=== PATIENT | female | born 1970 | race Caucasian/White ===

== ENCOUNTER → 2017-10-05 14:33 | Outpatient (CLI) | payer MEDICARE, MEDICAID, SELFPAY ==
[2017-10-05 14:56] LABS: Potassium 5.4 mmol/L (3.5-5.1)
== END ==
PROVIDERS: Visit Provider Nurse Practitioner
DX: E87.5 Hyperkalemia (principal)
CPT/HCPCS: 84132

== ENCOUNTER → 2017-10-28 14:54 | Outpatient (CLI) | payer MEDICARE, MEDICAID, SELFPAY ==
--- NOTE | 2017-10-28 14:56 | BI_ITS ---
MAMMOGRAPHY - BILATERAL SCREENING 3-D TANIA SYNTHESIS REASON FOR EXAM: Female, 47 years old. Bilateral Screening 3-D tomosynthesis PERTINENT HISTORY: Left needle biopsy in 1999. Patient presents asymptomatic. Positive family history involving paternal great aunt at unknown age.. TECHNIQUE: 2-D mammograms and 3-D Tania synthesis of the breast (s) were performed. CAD was performed. COMPARISON: October 15, 2008. FINDINGS: The breast composition is composed of scattered fibroglandular density. There is a 10.3 mm, predominantly well-circumscribed, hyperdense nodule within the left breast mid zone upper outer quadrant. Recommend further evaluation with sonography. There are no suspicious clustered pleomorphic calcifications. No secondary signs of malignancy. BI/SCREENING MAMM (CAD), BILAT IMPRESSION: 1 cm hyperdense left breast nodule within the upper lateral breast. Sonographic evaluation/characterization is recommended. ASSESSMENT CATEGORY: BIRADS Category 0: Incomplete. Need additional imaging evaluation as above. A letter regarding these results will be sent to the patient by the facility within 30 days. FOLLOW UP RECOMMENDATION: Ultrasound Recommended. (I) Approximately 10% of breast cancers are not detected by mammography. A normal mammogram should not delay biopsy of a clinically suspicious abnormality. Electronically Signed: Nato Trinidad MD at 15:53 EDT , Service support ,
== END ==
PROVIDERS: Visit Provider Nurse Practitioner
DX: Z12.31 Encounter for screening mammogram for malignant neoplasm of breast (principal)
CPT/HCPCS: 77063; 77067

== ENCOUNTER → 2017-11-04 13:54 | Outpatient (CLI) | payer MEDICARE, MEDICAID, SELFPAY ==
--- NOTE | 2017-11-04 14:03 | US_ITS ---
STUDY: ULTRASOUND BREAST - LEFT REASON FOR EXAM: Female, 47 years old. Abnormal screening mammogram. TECHNIQUE: Axial and longitudinal images of the LEFT breast were performed with a high resolution ultrasound transducer. COMPARISON: Comparison is made with prior mammogram dated October 28, 2017. FINDINGS: LEFT Breast: There is a 3 mm x 4 mm x 2 mm cyst at the 1:00 percent of breast at 3 cm from the nipple. This also evidence of 2 well-defined subcentimeter slightly echogenic nodules at the 1:30 position breast at 7 cm from nipple and at 2:00 position (7 cm from nipple most likely representing small lipomas. There is also evidence of a 6 mm x 6 mm x 4 mm benign-appearing lymph node at the 2:00 position breast at 7 cm from the nipple. US/Breast Limited Unilateral IMPRESSION: Findings suggestive of a 3 mm x 4 mm x 2 mm cyst at the 1:00 position breast at 3 cm from nipple. 3 small lipomas are also seen as well as a benign-appearing lymph node. ASSESSMENT CATEGORY: BIRADS Category 2: Benign. A letter regarding these results will be sent to the patient by the facility within 30 days. Electronically Signed: Eduard Lanza MD at 9:44 EDT Tel [phone], Service support ,
== END ==
PROVIDERS: Family Provider Nurse Practitioner; PCP Nurse Practitioner; Visit Provider Nurse Practitioner
DX: N63.21 Unspecified lump in the left breast, upper outer quadrant (principal)
CPT/HCPCS: 76642

== ENCOUNTER → 2018-08-30 15:54 | Outpatient (CLI) | payer MEDICARE, MEDICAID, SELFPAY ==
[2017-12-28 15:42] VITALS: BMI 27.1
[2018-08-30 16:12] LABS: Potassium 5.2 mmol/L (3.5-5.1)
== END ==
PROVIDERS: Family Provider Nurse Practitioner; PCP Nurse Practitioner; Referring Provider Nurse Practitioner; Visit Provider Nurse Practitioner
DX: E87.5 Hyperkalemia (principal)
CPT/HCPCS: 84132

== ENCOUNTER → 2018-09-01 15:41 | Outpatient (CLI) | payer MEDICARE, MEDICAID, SELFPAY ==
[2018-09-01 16:19] LABS: Free T3 3.2 pg/mL (2.18-3.98); Potassium 5.1 mmol/L (3.5-5.1); T4 Free Direct 1.33 ng/dL (0.76-1.46); Thyroid Stim Hormone (TSH) 0.76 uIU/mL (0.358-3.74); Vitamin B12 522 pg/mL (211-911)
== END ==
PROVIDERS: Family Provider Nurse Practitioner; PCP Nurse Practitioner; Referring Provider Nurse Practitioner; Visit Provider Nurse Practitioner
DX: E03.9 Hypothyroidism, unspecified (principal); M79.606 Pain in leg, unspecified; E87.5 Hyperkalemia
CPT/HCPCS: 82607; 84132; 84439; 84443; 84481

== ENCOUNTER 2021-04-20 02:49 | Emergency (ER) | payer MEDICARE, MEDICAID, SELFPAY ==
[2021-04-20 02:49] VITALS: BP 179/91; PULSE 84; RESP 16; TEMP 36.1; O2SAT 98; BMI 29.9
[2021-04-20] MEDS: Ketorolac 15 MG/ML Vial IM (03:20)
[2021-04-20 03:24] VITALS: BP 153/80
[2021-04-20 03:28] VITALS: BP 153/80
--- NOTE | 2021-04-20 04:09 | EDS_ITS ---
HPI History of Present Illness Chief Complaint: Hypertension Narrative Narrative: Patient presenting with mild headache. She states has had it most of the day. She checked her blood pressure and this was elevated at home. She states that she has not had any change in her blood pressure medications. Patient is on valsartan 40 mg p.o. daily. Patient has no visual complaints. She is not dizzy or lightheaded. She has no photophobia or phonophobia. No history of migraine. She denies chest pain, palpitations, shortness of breath. She is not had a fever. She denies any neck pain. Patient took some aspirin and some Tylenol today. When she checked her blood pressure she was concerned. Her son told her she needed to come to the ER for evaluation. [facility] Medical History Anxiety and depression Arthritis Asthma Back problem Breast lump GERD (gastroesophageal reflux disease) Hearing problem High cholesterol Psoriasis Seasonal allergies Thyroid disease Type 1 diabetes Vision problem Vitamin deficiency Home Medications fluticasone propion-salmeterol 1 puff INHALATION BID 03/14/14 [History Last Taken Unknown] aspirin-caffeine 500 mg-32.5 mg tablet 2 tab PO BID tab 12/28/17 [History Last Taken Unknown] calcium carbonate 333 mg-magnesium oxide 133 mg-zinc gluc 5 mg tablet 1 tab PO DAILY 12/28/17 [History Last Taken Unknown] cholecalciferol (vitamin D3) 25 mcg (1,000 unit) capsule 1,000 unit PO BID cap 12/28/17 [History Last Taken Unknown] cranberry concentrate-ascorbic acid 4,200 mg-20 mg capsule 1 cap PO DAILY 12/28/17 [History Last Taken Unknown] esomeprazole magnesium 20 mg capsule,delayed release 20 mg PO QDAY 12/28/17 [History Last Taken Unknown] insulin aspart U-100 100 unit/mL subcutaneous solution See Rx Instructions SC TID ml 12/28/17 [History Last Taken Unknown] levothyroxine 125 mcg tablet 125 mcg PO QDAY 12/28/17 [History Last Taken Unknown] pravastatin 20 mg tablet 20 mg PO .q o d tab 12/28/17 [History Last Taken Unknown] terbinafine HCl 250 mg tablet 250 mg PO QDAY PRN 12/28/17 [History Last Taken Unknown] turmeric root extract 500 mg capsule 500 mg PO QDAY 12/28/17 [History Last Taken Unknown] blood sugar diagnostic #300 ea 02/21/18 [Rx Last Taken Unknown] insulin syringe-needle U-100 0.3 mL 30 gauge x 1/2 #90 ea 02/21/18 [Rx Last Taken Unknown] pen needle, diabetic 32 gauge x 3/16 #130 ea 02/21/18 [Rx Last Taken Unknown] Levemir FlexTouch U-100 Insuln 18 unit SC QHS 04/20/21 [History Last Taken Unknown] albuterol sulfate 2 puff INHALATION Q4H PRN PRN 04/20/21 [History Last Taken Unknown] ascorbic acid (vitamin C) [Vitamin C] 500 mg PO DAILY 04/20/21 [History Last Taken Unknown] cyanocobalamin (vitamin B-12) [Vitamin B-12] 1,000 mcg PO DAILY 04/20/21 [History Last Taken Unknown] insulin detemir U-100 [Levemir Flexpen] 14 unit SUBCUT DAILY 04/20/21 [History Last Taken Unknown] myveos-hwrhpjcf-[id number] [Creon] 1 cap PO TID 04/20/21 [History Last Taken Unknown] valsartan 40 mg PO DAILY 04/20/21 [History Last Taken Unknown] Allergy/AdvReac Type Severity Reaction Status Date / Time amoxicillin trihydrate Allergy Severe Unknown Verified 04/20/21 02:51 [From Augmentin] azithromycin [From Zithromax] Allergy Severe Unknown Verified 04/20/21 02:51 clarithromycin [From Biaxin] Allergy Severe Unknown Verified 04/20/21 02:51 ibuprofen [From Advil] Allergy Severe Unknown Verified 04/20/21 02:51 potassium clavulanate Allergy Severe Other Verified 04/20/21 02:51 [From Augmentin] sulfadiazine [Sulfadiazine] Allergy Severe Unknown Verified 04/20/21 02:51 levothyroxine Allergy Unknown Unknown Verified 04/20/21 02:51 vancomycin Allergy Unknown Unknown Verified 04/20/21 02:51 Family History Mother Asthma Arthritis Hypertension Hypothyroid Thyroid nodule Father Diabetes Heart disease Liver disease Sister High cholesterol Hypothyroid Surgical History H/O foot surgery H/O laparoscopy H/O: hysterectomy Social History Smoking Status: Former smoker second hand exposure: No alcohol intake: never substance use type: does not use ROS ROS ED Constitutional Constitutional ED: Denies chills, fever(s) or sweats Eyes Eyes: Denies blurry vision or change in vision ENT ENT ED: Denies ear pain or sore throat Cardiovascular Cardiovascular: Denies chest pain, palpitations or racing heartbeat Respiratory/Chest Respiratory/Chest: Denies cough, dyspnea or sputum Gastrointestinal Gastrointestinal: Denies abdominal pain, constipation, diarrhea, nausea or vomiting Genitourinary Genitourinary ED: Denies dysuria, hematuria or urinary frequency Musculoskeletal Musculoskeletal: Denies arthralgias, myalgias or neck pain Integumentary Denies abscess, Abrasions or rash Neurologic Neurologic: Reports headache(s); Denies confusion, disequilibrium, dizziness, focal weakness, paresthesias, vertigo or weakness Psychiatric Psychiatric: Denies anxiety, depression, suicidal ideation or suicidal thoughts Endocrine Endocrinology: Denies polydipsia or polyuria EXAM Physical Exam Const Vital Signs: 04/20/21 02:49 04/20/21 02:59 04/20/21 03:24 Temperature 97 F L Temperature Source Temporal Pulse Rate 84 Respiratory Rate 16 Respiratory Pattern Normal Blood Pressure 179/91 H 153/80 H Blood Pressure Mean 120 104 Pulse Ox 98 04/20/21 03:28 Temperature Temperature Source Pulse Rate Respiratory Rate Respiratory Pattern Blood Pressure 153/80 H Blood Pressure Mean Pulse Ox Positive well nourished, alert, oriented x3 and no apparent distress General Appearance ED: Negative for pallor HEENT Reports normocephalic, head/scalp atraumatic and moist mucous membranes Eyes PERRL and EOMs intact bilaterally Neck no lymphadenopathy and supple Chest Wall inspection of chest normal and palpation of chest normal Resp normal respiratory effort and clear to auscultation bilaterally Auscultation: Negative for rales, rhonchi or wheezes Cardio regular rate and regular rhythm Narrative: Deferred Back/Spine Cervical Spine: Negative for cervical spine tenderness Extremity normal to inspection and full ROM; Negative for no calf tenderness or no pedal edema General Extremety ED: Yes edema and tenderness General Extremity: edema Neuro oriented x3 and CN's II-XII intact bilaterally Sensorium / Orientation: alert, oriented to person, oriented to place and oriented to time Meningeal Signs: no meningeal signs Speech: speech normal Motor Exam: strength 5/5 throughout Psych mental status grossly normal Attitude: No agitated Skin no rashes or lesions noted and no wounds General Skin Exam: Negative for jaundice or pallor MDM MDM MDM Narrative Medical decision making narrative: Patient presenting with headache and she was concerned that her blood pressure was elevated and this was causing her headache. She does take valsartan on a regular basis. Her initial blood pressure was 179/91. After rechecking this after she rested in bed it is 153/80. Patient states that she became concerned when her son told her she needs to come to the emergency room. She states she kept checking her blood pressure and it was still elevated. Again her blood pressure is elevated but not to the point that she needs aggressive treatment. I will give the patient a shot of Toradol. She does not have any red flag signs or symptoms with her headache. It was not acute in onset. She has no neck pain. She has no visual complaints, neurologic complaints. I believe patient stable for discharge home. Impression: 1. Headache 2. Elevated blood pressure Discharge Plan Triage Chief Complaint: Hypertension ED Provider: Mateus Ochoa Dx/Rx/DC Orders Instructions: Understanding Headache Pain, ED Hypertension, Established Prescriptions: No Action levothyroxine [Synthroid] 125 mcg tablet 125 mcg PO QDAY RF: 0 esomeprazole magnesium 20 mg capsule,delayed release(DR/EC) 20 mg PO QDAY RF: 0 pravastatin 20 mg tablet 20 mg PO .q o d RF: 0 terbinafine HCl 250 mg tablet 250 mg PO QDAY PRN (Reason: Rash) RF: 0 cholecalciferol (vitamin D3) 1,000 unit capsule 1,000 unit PO BID RF: 0 calcium carbonate 333 mg-magnesium oxide 133 mg-zinc gluc 5 mg tablet 333-133-5 mg tablet 1 tab PO DAILY RF: 0 turmeric root extract 500 mg capsule 500 mg PO QDAY RF: 0 cranberry conc-ascorbic acid 4,200-20 mg capsule 1 cap PO DAILY RF: 0 aspirin-caffeine [Hodan Back and Body] 500-32.5 mg tablet 2 tab PO BID RF: 0 insulin aspart U-100 [Novolog U-100 Insulin aspart] 100 unit/mL solution See Rx Instructions SC TID RF: 0 (DME) insulin syringe-needle U-100 0.3 mL 30 gauge x 1/2 0.3 mL 30 gauge x 1/2 syringe See Dose Instructions .ROUTE .MEDSUPPLY Qty: 90 RF: 11 fluticasone propion-salmeterol 1 PUFF inhaler 1 puff INHALATION BID RF: 0 albuterol sulfate 90 mcg/actuation HFA aerosol inhaler 2 puff INHALATION Q4H PRN PRN (Reason: Shortness Of Breath) RF: 0 Levemir Flexpen 100 unit/mL (3 mL) Insulin Pen 14 unit SUBCUT DAILY RF: 0 Levemir FlexTouch U-100 Insuln 100 unit/mL (3 mL) insulin pen 18 unit SC QHS RF: 0 cyanocobalamin (vitamin B-12) [Vitamin B-12] 1,000 mcg Tablet 1,000 mcg PO DAILY RF: 0 ascorbic acid (vitamin C) [Vitamin C] 500 mg Tablet 500 mg PO DAILY RF: 0 valsartan 40 mg tablet 40 mg PO DAILY RF: 0 Creon 36,000-114,000- 180,000 unit capsule,delayed release(DR/EC) 1 cap PO TID RF: 0 (DME) blood sugar diagnostic [FreeStyle Lite Strips] strip See Dose Instructions .ROUTE .MEDSUPPLY Qty: 300 RF: 11 (DME) pen needle, diabetic [Comfort EZ Pen [place]] 32 gauge x 3/16 needle See Dose Instructions .ROUTE .MEDSUPPLY Qty: 130 RF: 11 Primary Care Provider: Carolin Patel NP Referrals: Carolin Patel NP, [employer] [Primary Care Provider] - Disposition Disposition: Home, Self Care Discharge Date/Time: 04/20/21 03:28
== END 2021-04-20 03:28 | disposition home or self-care (01) ==
LOC: ED 03:38
PROVIDERS: Emergency Provider Student in an Organized Health Care Education/Training Program; PCP Nurse Practitioner
DX: R51.9 Headache, unspecified (principal); I10 Essential (primary) hypertension; F41.9 Anxiety disorder, unspecified; F32.A Depression, unspecified; J45.909 Unspecified asthma, uncomplicated; K21.9 Gastro-esophageal reflux disease without esophagitis; E10.9 Type 1 diabetes mellitus without complications; E03.9 Hypothyroidism, unspecified; E78.00 Pure hypercholesterolemia, unspecified; Z79.4 Long term (current) use of insulin; Z79.899 Other long term (current) drug therapy; Z87.891 Personal history of nicotine dependence
CPT/HCPCS: 96372; 99282; A4216

== ENCOUNTER → 2021-04-21 10:22 | Outpatient (CLI) | payer MEDICARE, MEDICAID, SELFPAY ==
--- NOTE | 2021-04-21 10:41 | VDLE_ITS ---
Reason For Study: LLE PAIN RIGHT LEFT CFV is compressible, spontaneous, competent FV is compressible, spontaneous, phasic, and demonstrates pulsatile venous flow. competent and demonstrates normal Procedure augmentation. This is a venous duplex using B-mode, color POP V is compressible, spontaneous, phasic, flow and spectral Doppler. competent and demonstrates normal Exam performed in department. augmentation. The exam was diagnostic. T/P Trunk is compressible. A preliminary report was called and/or faxed PTV is compressible. to Carolin Patel [facility]RECTIONAL COOK @ 11: 05 am @[phone]. LT PerV is compressible. CFV is NON-COMPRESSIBLE, spontaneous, competent and demonstrates pulsatile venous flow. PT was unable to tolerate probe compressions. Gasstronemius V and SSV are compressible. VL/Venous Duplex US, Unilateral Interpretation Summary Deep veins of the left lower extremity are patent segmentally. There is no evid ence of left lower extremity deep vein thrombosis. Valvular competence appears intact within the p roximal deep venous system on the left . The left great saphenous vein appears patent and compressi ble segmentally. The left small saphenous vein is patent and compressible. Ordering Physician: Carolin Patel Referring Physician: Carolin Patel Performed By: Dayana Mccoy, ANGELACS, RVT
== END ==
PROVIDERS: PCP Nurse Practitioner; Referring Provider Nurse Practitioner; Visit Provider Nurse Practitioner
DX: M79.662 Pain in left lower leg (principal)
CPT/HCPCS: 93971

== ENCOUNTER 2021-08-14 07:51 | Outpatient (CLI) | payer MEDICARE, MEDICAID, SELFPAY ==
--- NOTE | 2021-08-14 07:54 | RAD_ITS ---
STUDY: X-RAY - ESOPHAGUS (BARIUM SWALLOW) WITH FLUOROSCOPY REASON FOR EXAM: Female, 51 years old. DYSPHAGIA TECHNIQUE: 18 view(s) of the esophagus were obtained following swallowing of barium. FLUOROSCOPY TIME (if supplied): (27 seconds) minutes/seconds COMPARISON: None. FINDINGS: There is no demonstrated esophageal foreign body. There is no demonstrated stricture or mucosal abnormality. Normal gastroesophageal junction, without a demonstrated hiatal hernia. The patient ingested a 12 mm tablet of barium without any difficulty. Normal visualized aortic arch and descending thoracic aorta. Normal visualized pulmonary parenchyma. Normal visualized osseous structures of the thorax. RAD/Esophagus Dual Contrast IMPRESSION: Normal plain film x-ray examination (barium swallow) of the esophagus. Electronically Signed: Eduard Lanza MD at 15:14 EST ,
== END 2021-08-14 23:59 | disposition home or self-care (01) ==
LOC: RAD 07:53
PROVIDERS: PCP Nurse Practitioner; Referring Provider Internal Medicine Gastroenterology; Visit Provider Internal Medicine Gastroenterology
DX: R13.10 Dysphagia, unspecified (principal)
CPT/HCPCS: 74221